=== PATIENT | female | born 1940 | race Hispanic/Latino ===

== ENCOUNTER 2016-05-09 11:26 | Outpatient (CLI) | payer MEDICARE, OTHER ==
--- NOTE | 2016-05-09 12:28 | Mammography Report ---
BILATERAL MAMMOGRAM with CAD: HISTORY:Cancer screening. Comparison study is dated May 08, 2015. FINDINGS: The breasts are almost entirely fat (<25% glandular). No mass, distortion, suspicious calcification, or skin change is seen. IMPRESSION: Negative mammogram. There is no mammographic evidence of malignancy. RECOMMENDATION: Follow-up per ACS guidelines. BI-RADS CATEGORY: 1 = Negative ACR BI-RADS MAMMOGRAPHIC CODES: 0 = Needs additional imaging evaluation; 1 = Negative; 2 = Benign; 3 = Probably benign; 4 = Suspicious; 5 = Malignant; 6 = Known biopsy-proven malignancy COMMENT: 1. Dense breast tissue, i.e., adenosis, fibrocystic changes, etc., may obscure an underlying neoplasm. 2. Approximately 10% of cancers are not detected with mammography. 3. A negative mammography report should not delay biopsy if a clinically suspicious mass is present. COMMENT: Patient follow-up letters are generated in [employer].
== END 2016-05-09 11:27 | disposition home or self-care (01) ==
LOC: MAMMO 11:26
PROVIDERS: ATTEND Internal Medicine
DX: Z12.31 Encounter for screening mammogram for malignant neoplasm of breast (principal)
CPT/HCPCS: 77067; G0202

== ENCOUNTER 2017-01-24 13:30 | Outpatient (CLI) | payer MEDICARE, OTHER ==
--- NOTE | 2017-01-24 15:55 | Cat Scan Report ---
CT HEAD WITHOUT CONTRAST INDICATION: Subdural hemorrhage. COMPARISON: None similar. FINDINGS: Noncontrast head CT demonstrates prominent/increased extra-axial CSF spaces towards the vertex as on axial images 46-55, series 2 as also around the left frontal lobe as on axial image 24 with maximum thickness of approximately 9 mm on axial image 51. Very minimal increased density may represent resolving late subacute or chronic subdural collections. No acute hyperdense hemorrhage, infarct or midline shift. Age-appropriate ventricles and sulci. Mild periventricular white matter hypodensities. Normal posterior fossa with preserved basilar cisterns. Bilateral cataract surgery. Mild bilateral maxillary and sphenoid sinus mucosal thickening. Right frontal and ethmoid sinus mucosal thickening as well. Clear remainder imaged paranasal sinuses and mastoid air cells. Atherosclerotic ICA calcifications. Intact calvarium. Normal scalp. Numerous radiopaque dental material. Cervical spondylosis. CONCLUSION: 1. Late subacute or chronic subdural hygromas, left more than right, as described. 2. Other findings, including sinusitis, as above. Thank you for the opportunity to participate in this patient's care.
== END 2017-01-24 13:31 | disposition home or self-care (01) ==
LOC: CT 13:30
PROVIDERS: ATTEND Internal Medicine
DX: I62.00 Nontraumatic subdural hemorrhage, unspecified (principal); J32.9 Chronic sinusitis, unspecified; M47.892 Other spondylosis, cervical region; I70.0 Atherosclerosis of aorta; Z98.41 Cataract extraction status, right eye; Z98.42 Cataract extraction status, left eye
CPT/HCPCS: 70450

== ENCOUNTER 2018-07-31 09:00 | Outpatient (CLI) | payer MEDICARE, OTHER ==
--- NOTE | 2018-07-31 14:39 | Mammography Report ---
BILATERAL DIGITAL SCREENING MAMMOGRAM WITH CAD: 07/31/18 09:00:00 CLINICAL: Routine screening. COMPARISON:05/09/16 FINDINGS: The breasts are mostly fatty. A group of left retroareolar calcifications requires additional imaging. The calcifications have increased in number and some are in a linear distribution. No associated mass or architectural distortion. The right breast is negative. IMPRESSION: Left calcifications requiring further workup. BI-RADS CATEGORY: 0 -- Additional Imaging Evaluation Required RECOMMENDATION: Recall for left LM and LM and CC magnification views. COMMENT: 1. Dense breast tissue, i.e., adenosis, fibrocystic changes, etc., may obscure an underlying neoplasm. 2. Approximately 10% of cancers are not detected with mammography. 3. A negative mammography report should not delay biopsy if a clinically suspicious mass is present. COMMENT: Patient follow-up letters are generated via our [employer] application.
== END 2018-07-31 09:01 | disposition home or self-care (01) ==
LOC: MAMMO 09:00
PROVIDERS: ATTEND Internal Medicine
DX: Z12.31 Encounter for screening mammogram for malignant neoplasm of breast (principal)
CPT/HCPCS: 77067

== ENCOUNTER 2018-09-11 08:58 | Outpatient (CLI) | payer MEDICARE, OTHER ==
--- NOTE | 2018-09-11 10:09 | Mammography Report ---
Left mammogram: Call back for left microcalcifications. Magnification CC and lateral views demonstrates a pleomorphic grouping of calcifications which is had shown increased in numbers since prior examination in 2017. There is no soft tissue component identified. Impression: Indeterminate left calcifications. Recommendation: Stereotactic biopsy of left breast calcifications. The patient has been informed of our recommendation. BI-RADS CATEGORY: 4 = Suspicious ACR BI-RADS MAMMOGRAPHIC CODES: 0 = Needs additional imaging evaluation; 1 = Negative; 2 = Benign; 3 = Probably benign; 4 = Suspicious; 5 = Malignant; 6 = Known biopsy-proven malignancy COMMENT: 1. Dense breast tissue, i.e., adenosis, fibrocystic changes, etc., may obscure an underlying neoplasm. 2. Approximately 10% of cancers are not detected with mammography. 3. A negative mammography report should not delay biopsy if a clinically suspicious mass is present.
== END 2018-09-11 08:59 | disposition home or self-care (01) ==
LOC: MAMMO 08:58
PROVIDERS: ATTEND Internal Medicine
DX: R92.1 Mammographic calcification found on diagnostic imaging of breast (principal)

== ENCOUNTER 2018-09-21 13:14 | Outpatient (CLI) | payer MEDICARE, OTHER ==
--- NOTE | 2018-09-21 15:05 | Mammography Report ---
LEFT DIGITAL DIAGNOSTIC MAMMOGRAM: 09/21/18 13:14:00 CLINICAL: For clip placement immediately status post stereotactic biopsy. COMPARISON:09/11/18 FINDINGS: A retroareolar biopsy clip is now identified at the site of previously identified calcifications. Most if not all of the calcifications appear to have been removed. IMPRESSION: Concordant clip placement status post stereotactic biopsy. BI-RADS CATEGORY: 4--Suspicious Pathology pending.
--- NOTE | 2018-09-21 15:35 | Mammography Report ---
STEREOTACTIC VACUUM ASSISTED BIOPSY WITH CLIP PLACEMENT LEFT: 09/21/18 13:14:00 CLINICAL: Suspicious retroareolar calcifications. COMPARISON:09/11/18 FINDINGS: Consent for the procedure was obtained. The calcifications were targeted with stereotactic guidance. The skin was prepped with Betadine and anesthetized with 1% lidocaine. 2% lidocaine with epinephrine was injected for deeper anesthesia. 8 gauge Mammotome biopsy was performed from a CC from below approach through a small dermatotomy. Prefire and post-fire images demonstrated satisfactory positioning of the probe. Samples were obtained around the clock face. A specimen radiograph confirmed satisfactory sampling with removal of account service representative calcifications. A clip was placed at the biopsy site and deployment was confirmed with a radiograph. The probe was removed and hemostasis was achieved with mild pressure. A sterile dressing was applied. The patient tolerated the procedure well and there were no apparent complications. A two view mammogram demonstrated concordant deployment of the biopsy clip and few if any remaining calcifications at the site. IMPRESSION: Uncomplicated stereotactic biopsy with clip placement breast.
== END 2018-09-21 13:15 | disposition home or self-care (01) ==
LOC: SPVWC 13:14
PROVIDERS: ATTEND Internal Medicine
DX: D05.12 Intraductal carcinoma in situ of left breast (principal); R92.1 Mammographic calcification found on diagnostic imaging of breast; Z88.8 Allergy status to other drugs, medicaments and biological substances
CPT/HCPCS: 19081; 77065; 88305; A4648; 88341; 88342